=== PATIENT | male | born 1985 | race Caucasian/White ===

== ENCOUNTER 2019-11-11 17:29 | Inpatient (IN) | payer MEDICAID, OTHER ==
[~2019-11-11] VITALS: Ht 182.9 cm; Wt 66.6 kg
[2019-11-11] MEDS ORDERED: LORazepam 1 MG tablet PO ONE ×2 (18:00→21:25)
[2019-11-11] MEDS ORDERED: diphenhydrAMINE 25mg capsule PO ONE ×2 (18:00→21:25)
--- NOTE | 2019-11-11 18:00 | NUR ---
Pt brought by PD. Daniel ambulated with the patient while he changing clothes into green scrubs and secured belongings and provided a urine specimen.
[2019-11-11 18:08] LABS: CLARITY,URINE SLIGHTLY CLOUDY (Clear); COLOR,URINE YELLOW (Yellow); GLUCOSE, URINE NEGATIVE (Neg); KETONES,URINE 15 mg/dl (Neg); LEUKOCYTE ESTERASE ,URINE NEGATIVE (Neg); NITRITES, URINE NEGATIVE (Neg); OCCULT BLOOD,URINE NEGATIVE (Neg); PH,URINE 5.5 (4.8-8.0); PROTEIN,URINE 30 mg/dl (Neg); UROBILINOGEN,URINE 0.2 E.U/dL (0.2-1.0)
[2019-11-11 18:14] LABS: UA COLLECTION TYPE VOIDED
[2019-11-11 18:18] LABS: URINE AMPHETAMINE SCREEN NEGATIVE (Neg); URINE BARBITUATE SCREEN NEGATIVE (Neg); URINE BENZODIAZEPINES SCREEN POSITIVE (Neg); URINE CANNABINOID SCREEN NEGATIVE (Neg); URINE COCAINE SCREEN NEGATIVE (Neg); URINE METHADONE SCREEN NEGATIVE (Neg); URINE OPIATE SCREEN NEGATIVE (Neg); URINE PHENCYCLIDINE SCREEN NEGATIVE (Neg)
[2019-11-11] MEDS ORDERED: FLUO-12 PO (18:18)
[2019-11-11 18:19] LABS: ALANINE AMINOTRANSFERASE 51 U/L (12-78); ALBUMIN 4.1 G/DL (3.4-5.0); ALBUMIN/GLOBULIN RATIO 1.2 (1.1-1.5); ALKALINE PHOSPHATASE 78 IU/L (46-116); ANION GAP 12 (8-16); ASPARTATE AMINO TRANSFERASE 29 U/L (10-37); BILIRUBIN,TOTAL 1.1 MG/DL (0.1-1.0); BLOOD UREA NITROGEN 18 MG/DL (7-18); BUN/CREATININE RATIO 20.9 (5.4-32.0); CALCIUM 9.2 MG/DL (8.5-10.1); CHLORIDE 105 MMOL/L (99-107); CREATININE 0.86 MG/DL (0.60-1.10); GLUCOSE 98 MG/DL (70-104); POTASSIUM 3.6 MMOL/L (3.5-5.1); SODIUM 143 MMOL/L (135-145); TOTAL CARBON DIOXIDE 25.8 MMOL/L (24-32); TOTAL PROTEIN 7.5 G/DL (6.4-8.2); eGFR > 90 ML/MIN
[2019-11-11 18:19] LABS: BACTERIA,URINE NONE SEEN /HPF (Neg); HYALINE CASTS 0-3 /LPF (NEGATIVE); MUCUS STRANDS MODERATE /LPF (Neg); RBC,URINE 0-2 /HPF (0-2); SQUAMOUS EPITHELIAL CELL,UR FEW /LPF (FEW); WBC,URINE 0-4 /HPF (0-4)
[2019-11-11 18:28] LABS: ETHANOL 0.012 GM/DL (0.0-0.010)
[2019-11-11 18:29] LABS: ACETAMINOPHEN < 2.0 UG/ML (10-30); VALPROATE < 3.0 UG/ML (50-100)
[2019-11-11 18:48] LABS: BASOPHILS % (AUTO) 0.4 % (0-1); EOSINOPHILS % (AUTO) 0 % (0-6); HEMATOCRIT 42.1 % (42.0-52.0); HEMOGLOBIN 14.5 g/dl (14.0-17.9); LYMPHOCYTES # (AUTO) 0.7 X10'3 (1.1-4.8); LYMPHOCYTES % (AUTO) 6.8 % (21-51); MEAN CORPUSCULAR HEMOGLOBIN 33.8 PG (27.0-31.0); MEAN CORPUSCULAR HGB CONC 34.4 g/dL (33.0-36.5); MEAN CORPUSCULAR VOLUME 98.1 FL (78-98); MEAN PLATELET VOLUME 8.3 FL (7.4-10.4); MONOCYTES # (AUTO) 1.3 X10'3 (0-0.9); MONOCYTES % (AUTO) 12.4 % (2-12); NEUTROPHILS # (AUTO) 8.5 X10'3 (1.8-7.7); NEUTROPHILS % (AUTO) 80.4 % (42-75); PLATELET COUNT 410 X10'3 (140-440); RED BLOOD COUNT 4.29 X10'6 (4.70-6.10); RED CELL DISTRIBUTION WIDTH 12.3 % (11.5-14.5); WHITE BLOOD COUNT 10.5 X10'3 (4.5-11.0)
--- NOTE | 2019-11-11 18:55 | NUR ---
Pt is calm and cooperative at this time. Pt is drinking water at this time. Sitter nearby.
--- NOTE | 2019-11-11 19:04 | NUR ---
This policy writer typist is assisting the primary RN with this patients care. This patient is awake and oriented to person, place, time, and situation. The patient denies S/I, H/I, or any hallucinations. The patient states he was brought to the ED by ambulance. He states a store deli manager called 911. Patient states he earlier beleived that people were following him. Patient states he now realizes this wasn't really the case. Patient then states he "doesn't want to be hanging from the railing, he points to the corner of the celing in the room. Patient has a recent S/I attempt by strangulation. He was seen and discharged from care at [facility] in [facility]. This patient is shakey, he denies any drug use. Patient admits to alcohol consumption this am. Prior to that patient states he was dry from alcohol for 30 days. Patient admits to being a proffesional drinker. The patient makes indirect eye contact, his voice is quiet, shakey, it is an irregular rhythm. Patient unsure of his medication list. [facility] was faxed a HIPPA compliant medical release form. They will be faxing a med list back from patients discharge. The patient is cooperative with staff at this time. The room is clear of contraband. The patient was advised that he is in a safe place.
--- NOTE | 2019-11-11 20:09 | NUR ---
Patient steps out of room, still exhibiting anxiety and paranoia, he is responding to internal stimuli. ASSEMBLER PING PONG TABLE advised, he states "I'm aware."
[2019-11-11] MEDS ORDERED: OLANZapine 2.5MG tablet PO ONE (20:10)
--- NOTE | 2019-11-11 20:24 | NUR ---
Patient was given a turkey sandwich. He is consuming it rapidly. PO Zyprexa 5mg was also given PO. Patient is medication compliant at this time.
--- NOTE | 2019-11-11 20:38 | NUR ---
Packet sent to [facility]
--- NOTE | 2019-11-11 20:49 | NUR ---
Pt is eating dinner with a good appetite. Pt has not distress noted. Continuing to monitor at this time.
[2019-11-11] MEDS ORDERED: haloperidol 5mg tablet PO ONE (21:25)
--- NOTE | 2019-11-11 21:30 | NUR ---
Pt is hallucinating and making bizzarre statements. Pt is using a dry washcloth to "clean" the room. Pt stated "if I do not clean good enough my girlfiend will kill me." MARIALUISA Moody is notifying th provider about additional medication for the patient.
--- NOTE | 2019-11-11 21:53 | NUR ---
This patient has been pacing in his room, he is activly psychotic, he talks to people not in the room and is requesting windex to clean the windows. PO ativan, benadryl, and haldol given.
[2019-11-11] MEDS ORDERED: haloperidol lactate 5mg/ml inj IM ONE ×2 (22:15→23:15)
--- NOTE | 2019-11-11 22:18 | NUR ---
Patient was given Haldol 5mg IM for acute agitation, pt is still attempting to elope.
--- NOTE | 2019-11-11 22:45 | NUR ---
Pt is still pacing and actively tinkering with anything he can find in the room. Pt has a couple wash cloths he is attempting to "clean" with. Attempts to reorient the patient are unsuccessful at this time. Security and staff are at the bedside.
--- NOTE | 2019-11-11 23:07 | NUR ---
Encouraged the patient to attempt to rest some at this time.
[2019-11-11] MEDS ORDERED: LORazepam 2 mg/ml vial IM ONE ×2 (23:15→23:40)
[2019-11-11] MEDS ORDERED: LORazepam 2 mg/ml vial ONE (23:43)
--- NOTE | 2019-11-11 23:48 | NUR ---
Pt medicated as ordered for persistent aggitation, pacing, and attempting to break things in the room. 4-Point restraints applied at this time.
[2019-11-11] MEDS ORDERED: ketamine 50 mg/ml 10ml vial IM ONE ×2 (23:50)
--- NOTE | 2019-11-12 00:08 | NUR ---
Spoke with staff at [facility] to verify the patient's current medication list.
--- NOTE | 2019-11-12 00:30 | NUR ---
ASSUMED CARE FROM PARUL ELAM. PT APPEARS TO BE SLEEPING, IN HARD RESTRAINTS. VITALS MONITORED. BRETT ORDERED IV SALINE LOCK
[2019-11-12 00:54] LABS: CREATINE KINASE 270 U/L (39-308)
--- NOTE | 2019-11-12 01:00 | NUR ---
PT APPEARS TO BE SLEEPING, VITALS MONITORING. WILL CONTINUE TO MONITOR
[2019-11-12] MEDS ORDERED: LORazepam 2 mg/ml vial IV ONE (02:00)
--- NOTE | 2019-11-12 02:01 | NUR ---
PT AWAKE AND AGGITATED, PULLING ON RESTRAINTS. BRETT VOSS AT BEDSIDE, VERBAL 2 MG ATIVAN STAT.
--- NOTE | 2019-11-12 02:13 | NUR ---
PT APPEARS TO BE SLEEPING ONCE AGAIN, VITALS BEING MONITORED. PT IN EYESIGHT OF RN AT ALL TIMES. CAFETERIA SUPERVISOR OLIVERIO VOSS AT BEDSIDE EVALUATING PT FOR ADMISSION
--- NOTE | 2019-11-12 03:15 | NUR ---
PT NOT ALERT BUT AGGITATED AND FIGHTING AGAINST RESTRAINTS. BRETT VOSS AT BEDSIDE REEVALUATING PT, VERBAL NOT TO GIVE ANY MORE ATIVAN AT THIS TIME, PAGING ALIA TO EVALUATE PT IN THIS STATE
--- NOTE | 2019-11-12 03:30 | NUR ---
PT TENSE, FIGHTING RESTRAINTS, AND FIDGETING. VITALS COULD NOT BE ASCERTAINED, WILL CONTINUE TO MONITOR. PRECEDEX ORDERED, WAITNG ON PHARMACY
[2019-11-12] MEDS ORDERED: potassium CL 10mEq/100ml bag 100 ML IV PRN ×2 (03:45)
[2019-11-12] MEDS ORDERED: potassium Cl 20 mEq SR tablet PO PRN (03:45)
[2019-11-12] MEDS ORDERED: magnesium hydroxide 30ml (MOM) UD suspension PO PRN (03:45)
[2019-11-12] MEDS ORDERED: ondansetron/PF 4mg/2ml inj IV PRN (03:45)
[2019-11-12] MEDS ORDERED: acetaminophen 325mg tablet PO PRN ×2 (03:45)
[2019-11-12] MEDS ORDERED: dexmedetomidin/NS 400mcg/100ml 100 ML IV SCH (03:45)
[2019-11-12] MEDS: K, MAG and/or Phos replacement - Verify level? MC SCH ×2 (03:45→08:00)
[2019-11-12] MEDS ORDERED: LORazepam 2 mg/ml vial IV PRN (03:45)
--- NOTE | 2019-11-12 03:45 | NUR ---
PT STILL TENSE, FIGHTING RESTRAINTS, AND FIDGETING. VITALS COULD NOT BE ASCERTAINED, WILL CONTINUE TO MONITOR. PRECEDEX ORDERED, WAITNG ON PHARMACY
[2019-11-12] MEDS: dexmedetomidin/NS 400mcg/100ml 100 ML IV SCH ×2 (04:15→08:04)
--- NOTE | 2019-11-12 04:47 | NUR ---
PT GIVEN WARM BLANKET. PT STILL SHAKING, FIGHTING RESTRAINTS, TENSE, BUT NOT ALERT. WILL CONTINUE TO MONITOR AND MONITOR VITALS
[2019-11-12] MEDS ORDERED: normal saline 1000ML IV soln IVB ONE (05:35)
--- NOTE | 2019-11-12 06:30 | NUR ---
Assumed care of pt. Currently in 4 point hard restraints as well as Pecedex drip. RR equal and nonlabored, pt sleeping.
--- NOTE | 2019-11-12 07:30 | NUR ---
Pt resting comfortably, released from ankle restraints.
[2019-11-12] MEDS ORDERED: FLUoxetine 20mg capsule PO SCH (08:00)
--- NOTE | 2019-11-12 10:00 | NUR ---
Dr. Rich at bedside. Pt sedated, RR equal and nonlabored.
--- NOTE | 2019-11-12 11:40 | NUR ---
Magnolia Tai, Mother: [phone]
[2019-11-12] MEDS ORDERED: FLUO-12 PO (12:43)
--- NOTE | 2019-11-12 13:37 | NUR ---
RELIEVING RN FOR BREAK, PT IS SLEEPING QUIETLY, SITTER AT BEDSIDE
--- NOTE | 2019-11-12 14:00 | NUR ---
Precedex discontinued on pt.
--- NOTE | 2019-11-12 16:32 | NUR ---
Mother came to speak with RN regarding the pt, and extensive history was obtained. Pt without any psych history until roughly three weeks ago when he attempted to hang himself. At that time, the pt had an inpatient stay at [facility] followed by a stay at [facility] Pt was started on Prozac while at [facility] on 11/06/19. Pt was discharged two days later, and immediately began suffering hallucinations upon returning home, with gradually increasing severity. Mother states that the pt's hallucinations are "threatening", and fear for pt. She feels that pt's symptoms may be related to the Prozac. Requesting that the pt not be placed on Prozac. Mother also requesting psych eval for medication reccomendations.
--- NOTE | 2019-11-12 17:22 | NUR ---
Pt asleep on R side. RR equal and nonlabored.
--- NOTE | 2019-11-12 18:35 | NUR ---
DR. LENNON AT BEDSIDE ASSESSING PATIENT DUE TO DR. DIGGS STATING HE CAN GO TO STEP DOWN UNIT DOES NOT MEET ICU CRITERIA DUE TO DC'D IV RANI
--- NOTE | 2019-11-12 18:36 | NUR ---
Spoke with Dr. López who gave verbal order to down grade level of care from ICU to medical without telemetry due to patients change in condition.
--- NOTE | 2019-11-12 18:43 | NUR ---
PATIENT IN BED EYES CLOSED RR EVEN UN LABORED NO OBSERVABLE S/S OF ACUTE STRESS AT THIS TIME WILL CONTINUE TO MONITOR
--- NOTE | 2019-11-12 20:08 | NUR ---
patient in bed eyes closed rr even un labored ate 100% dinner, no observable s/s of acute stress at this time
[2019-11-12 21:00] VITALS: BP 115/48
--- NOTE | 2019-11-12 21:09 | NUR ---
Patient in room ED 16 to be transferred to room 3012A. I have received report from MARIALUISA Lynch and had the opportunity to ask questions and assume patient care.
--- NOTE | 2019-11-12 22:26 | NUR ---
Unable to DART patient due to patient's inability to stay awake to answer admission assessment questions. Patient is easily arousable but observed to be extremely fatigued.
[2019-11-13 03:00] VITALS: BP 100/49
--- NOTE | 2019-11-13 03:06 | NUR ---
Blood sugar was taken with results of 64 mg/dl. Previous BGL was 170 mg/dl. Patient was awakened and instructed to take 30 carbs of apple juice. Will recheck blood sugar until above 70 mg/dl Q15 MINS. MD Hensley has been notified with no further orders other than continuing monitoring.
[2019-11-13 05:29] LABS: ALANINE AMINOTRANSFERASE 41 U/L (12-78); ALBUMIN 3.1 G/DL (3.4-5.0); ALBUMIN/GLOBULIN RATIO 1.1 (1.1-1.5); ALKALINE PHOSPHATASE 75 IU/L (46-116); ANION GAP 9 (8-16); ASPARTATE AMINO TRANSFERASE 34 U/L (10-37); BILIRUBIN,TOTAL 1.2 MG/DL (0.1-1.0); BLOOD UREA NITROGEN 21 MG/DL (7-18); BUN/CREATININE RATIO 25.9 (5.4-32.0); CHLORIDE 106 MMOL/L (99-107); CREATININE 0.81 MG/DL (0.60-1.10); GLUCOSE 125 MG/DL (70-104); POTASSIUM 3.3 MMOL/L (3.5-5.1); SODIUM 144 MMOL/L (135-145); TOTAL CARBON DIOXIDE 29.4 MMOL/L (24-32); eGFR > 90 ML/MIN
[2019-11-13 06:00] VITALS: BP 109/57
--- NOTE | 2019-11-13 06:29 | NUR ---
Patient in room PCU 3012. I have received report from Marcia ELAM and had the opportunity to ask questions and assume patient care.
--- NOTE | 2019-11-13 06:30 | NUR ---
Problems reprioritized. Patient report given, questions answered & plan of care reviewed with MARIALUISA Pond.
[2019-11-13 06:42] LABS: BASOPHILS # (AUTO) 0.1 X10'3 (0-0.2); EOSINOPHILS # (AUTO) 0.1 X10'3 (0-0.9); EOSINOPHILS % (AUTO) 0.7 % (0-6); HEMATOCRIT 40.4 % (42.0-52.0); HEMOGLOBIN 13.9 g/dl (14.0-17.9); LYMPHOCYTES # (AUTO) 1.6 X10'3 (1.1-4.8); LYMPHOCYTES % (AUTO) 18.6 % (21-51); MEAN CORPUSCULAR HEMOGLOBIN 34.4 PG (27.0-31.0); MEAN CORPUSCULAR HGB CONC 34.5 g/dL (33.0-36.5); MEAN CORPUSCULAR VOLUME 99.7 FL (78-98); MEAN PLATELET VOLUME 8.1 FL (7.4-10.4); MONOCYTES % (AUTO) 12.4 % (2-12); NEUTROPHILS # (AUTO) 5.6 X10'3 (1.8-7.7); NEUTROPHILS % (AUTO) 67.3 % (42-75); PLATELET COUNT 405 X10'3 (140-440); RED BLOOD COUNT 4.06 X10'6 (4.70-6.10); WHITE BLOOD COUNT 8.4 X10'3 (4.5-11.0)
[2019-11-13] MEDS: potassium Cl 20 mEq SR tablet PO PRN ×3 (08:44→19:33)
[2019-11-13] MEDS: K, MAG and/or Phos replacement - Verify level? MC SCH (08:54)
[2019-11-13 11:00] VITALS: BP 100/56
[2019-11-13] MEDS: LORazepam 1 MG tablet PO PRN ×2 (12:36→22:07)
[2019-11-13 15:00] VITALS: BP 104/56
[2019-11-13 18:00] VITALS: BP 118/82
--- NOTE | 2019-11-13 18:20 | NUR ---
Problems reprioritized. Patient report given, questions answered & plan of care reviewed with Osiris ELAM.
--- NOTE | 2019-11-13 18:25 | NUR ---
Patient in room PCU 3012A. I have received report from MARIALUISA Pond and had the opportunity to ask questions and assume patient care. Patient alert and awake on room air, in no apparent distress.
[2019-11-13 22:00] VITALS: BP 124/73
[2019-11-14 02:00] VITALS: BP 101/62
--- NOTE | 2019-11-14 06:05 | NUR ---
Problems reprioritized. Patient report given, questions answered & plan of care reviewed with MARIALUISA Arvizu.
[2019-11-14 06:16] LABS: BASOPHILS # (AUTO) 0.1 X10'3 (0-0.2); BASOPHILS % (AUTO) 1.3 % (0-1); EOSINOPHILS # (AUTO) 0.1 X10'3 (0-0.9); EOSINOPHILS % (AUTO) 1.2 % (0-6); HEMATOCRIT 40.9 % (42.0-52.0); HEMOGLOBIN 14.5 g/dl (14.0-17.9); LYMPHOCYTES # (AUTO) 1.6 X10'3 (1.1-4.8); LYMPHOCYTES % (AUTO) 19.9 % (21-51); MEAN CORPUSCULAR HEMOGLOBIN 35.1 PG (27.0-31.0); MEAN CORPUSCULAR HGB CONC 35.5 g/dL (33.0-36.5); MEAN CORPUSCULAR VOLUME 98.8 FL (78-98); MEAN PLATELET VOLUME 7.6 FL (7.4-10.4); MONOCYTES # (AUTO) 0.9 X10'3 (0-0.9); MONOCYTES % (AUTO) 11.9 % (2-12); NEUTROPHILS # (AUTO) 5.1 X10'3 (1.8-7.7); NEUTROPHILS % (AUTO) 65.7 % (42-75); PLATELET COUNT 483 X10'3 (140-440); RED BLOOD COUNT 4.15 X10'6 (4.70-6.10); WHITE BLOOD COUNT 7.8 X10'3 (4.5-11.0)
--- NOTE | 2019-11-14 06:22 | NUR ---
Patient in room PCU 3012. I have received report from MARIALUISA Merchant and had the opportunity to ask questions and assume patient care. Patient asleep in bed and in no acute distress.
[2019-11-14 06:51] LABS: ALANINE AMINOTRANSFERASE 38 U/L (12-78); ALBUMIN 3.3 G/DL (3.4-5.0); ALKALINE PHOSPHATASE 76 IU/L (46-116); ANION GAP 6 (8-16); ASPARTATE AMINO TRANSFERASE 31 U/L (10-37); BILIRUBIN,TOTAL 1.3 MG/DL (0.1-1.0); BLOOD UREA NITROGEN 13 MG/DL (7-18); BUN/CREATININE RATIO 15.5 (5.4-32.0); CALCIUM 8.7 MG/DL (8.5-10.1); CHLORIDE 107 MMOL/L (99-107); CREATININE 0.84 MG/DL (0.60-1.10); GLUCOSE 93 MG/DL (70-104); POTASSIUM 4.3 MMOL/L (3.5-5.1); SODIUM 143 MMOL/L (135-145); TOTAL CARBON DIOXIDE 29.8 MMOL/L (24-32); TOTAL PROTEIN 6.6 G/DL (6.4-8.2); eGFR > 90 ML/MIN
[2019-11-14 07:00] VITALS: BP 101/61
[2019-11-14] MEDS ORDERED: GABA-532 PO (07:55)
[2019-11-14] MEDS: K, MAG and/or Phos replacement - Verify level? MC SCH (08:00)
--- NOTE | 2019-11-14 09:46 | NUR ---
Paged social media strategist to discuss options for outpatient therapy prior to discharge.
[2019-11-14 11:00] VITALS: BP 124/78
--- NOTE | 2019-11-14 12:45 | NUR ---
DR LENNON AT RN STATION. THE CONCERN THAT PT WAS A DANGER TO HIMSELF HELD BY ; CECILIA ELAM, DONELL ELAMDISTRIBUTOR OF DIRECTORIES, SS WORKER [employer] AND MYSELF EXPLAINED TO DR LENNON. DR LENNON PLACED PT ON A 1798 TO BE EVALUATED BY [facility]. Addendum: 11/14/19 at 1327 by Meghna Bautista RN Amended: Links added.
[2019-11-14 15:00] VITALS: BP 119/81
--- NOTE | 2019-11-14 15:10 | NUR ---
[facility] going in to evaluate patient.
--- NOTE | 2019-11-14 16:38 | NUR ---
Paged Dr. López regarding [facility] wanting to speak with him. PAGER ID: [phone] MESSAGE: [id number]. Moreno Tai. [facility] would like to speak with you. Thank you. Luh ELAM [phone] Addendum: 11/14/19 at 1640 by Luh Forrest RN Dr. López called back and is speaking with [facility] now.
--- NOTE | 2019-11-14 16:47 | NUR ---
Paged Dr. López if he would like to discharge patient now that [facility] has cleared him. PAGER ID: [phone] MESSAGE: [id number]. Moreno Tai. Would you like to discharge patient after [facility] gives him resources? Thank you. Luh ELAM [phone]
--- NOTE | 2019-11-14 17:10 | NUR ---
Patient stable for discharge per MD orders. All discharge instructions reviewed and all questions answered. Patient has an appointment on Sunday at [facility] for follow up. New prescriptions were called in to [facility]. All belongings collected and sent with patient. PIV discontinued and cannula intact. Patient left via private vehicle and mother picked patient up.
== END 2019-11-14 17:10 | disposition home or self-care (01) | DRG 751 ==
LOC: ER 17:30 → ED HOLD 11-12 03:41 → UNDOADMIN 11-12 03:41 → ED HOLD 11-12 04:22 → UNDOADMIN 11-12 04:22 → ED HOLD 11-12 18:35 → EDBEDREQSVC 11-12 20:56 → PCU 3S 11-12 21:19 → ED HOLD 11-12 21:19
PROVIDERS: ATTEND Internal Medicine
DX: F29 Unspecified psychosis not due to a substance or known physiological condition (principal); R45.851 Suicidal ideations; Z78.1 Physical restraint status; F10.10 Alcohol abuse, uncomplicated; F17.210 Nicotine dependence, cigarettes, uncomplicated; F32.9 Major depressive disorder, single episode, unspecified; F12.90 Cannabis use, unspecified, uncomplicated; F15.90 Other stimulant use, unspecified, uncomplicated; Z91.5 Personal history of self-harm
CPT/HCPCS: 36415; 80053; 80164; 80178; 80305; 80320; 80329; 81001; 82550; 82948; 84443; 85025; 87081; 96372; 96374; 99285; G0378; J1630; J2060; J7030; Q0163